=== PATIENT | male | born 1930 | race Caucasian/White ===

== ENCOUNTER → 2017-11-19 | Outpatient (CLI) | payer OTHER ==
[~2017-11-19] MED LIST: AMBIEN 5 MG TABL5 M1 PO; ASPIR 8181 MG PO; CENTRUM SILVER1 EAC4 PO; IRON325 PO; LIPITOR 20 MG T20 M1 PO; MIRALAX17 GM PO; MYRBETRIQ50 MG PO; NEURONTIN 300300 M1 PO; PERCOCET 10-321 EACH PO; PLAVIX 75 MG TA75 M1 PO; STOOL SOFTENER100 MG PO; TRAMADOL 50 MG50 MG PO; XARELTO10 MG PO
== END ==
LOC: NUC 07:43
DX: M25.562 Pain in left knee (principal); Z96.652 Presence of left artificial knee joint